=== PATIENT | female | born 1995 | race Two or more races ===

== ENCOUNTER 2021-12-16 15:31 | Emergency (ER) | payer MEDICAID ==
[~2021-12-16] VITALS: Ht 175.3 cm; Wt 59.0 kg
[2021-12-16] MEDS ORDERED: CEPH500T PO (17:42)
--- NOTE | 2021-12-16 18:00 | NUR ---
Patient was seen by . Wound cleansed and I and D by Dr Hansen. Sterile dressing applied. DC, Rx and follow up instructionws given and explained to patient who states she understands all instrucitons including wound check in 2 days
== END 2021-12-16 18:23 | disposition home or self-care (01) ==
LOC: ER 15:31
DX: L02.412 Cutaneous abscess of left axilla (principal); F17.290 Nicotine dependence, other tobacco product, uncomplicated; Z88.5 Allergy status to narcotic agent; Z79.899 Other long term (current) drug therapy
CPT/HCPCS: A4217; A4663

== ENCOUNTER 2021-12-19 21:09 | Emergency (ER) | payer MEDICAID ==
[~2021-12-19 21:09] MED LIST: CEPH500T PO
--- NOTE | 2021-12-19 21:45 | NUR ---
Katelyn [email or web address] in [facility] - 12/19/21 at 2145 by [id number] AFTER BEING TRAIGED, PATIENT WAS PLACED IN HALLWAY DUE TO NO BEDS AVAILABLE IN THE ER.
--- NOTE | 2021-12-19 22:01 | NUR ---
PATIENT LEFT WITHOUT BEING TRIAGED OR SEEN BY ERMD.
== END 2021-12-19 22:02 | disposition left against medical advice (07) ==
LOC: ER 21:16
DX: Z53.21 Procedure and treatment not carried out due to patient leaving prior to being seen by health care provider (principal)

== ENCOUNTER 2021-12-21 22:10 | Emergency (ER) | payer SELFPAY ==
--- NOTE | 2021-12-21 22:35 | NUR ---
Patient was called to be triaged but was not present in the waiting room or outside of ER.
--- NOTE | 2021-12-21 22:45 | NUR ---
Patient was called to be triaged but was not present in the waiting room or outside of ER.
--- NOTE | 2021-12-21 23:00 | NUR ---
Patient was not triaged or seen by ERMD
== END 2021-12-22 00:12 | disposition left against medical advice (07) ==
LOC: ER 22:15
DX: Z53.21 Procedure and treatment not carried out due to patient leaving prior to being seen by health care provider (principal)

== ENCOUNTER 2022-02-25 19:52 | Emergency (ER) | payer MEDICAID ==
[~2022-02-25] VITALS: Ht 172.7 cm; Wt 63.5 kg
--- NOTE | 2022-02-25 20:06 | NUR ---
DREDILBERTO EXAMINED PATIENT AT B/S.
--- NOTE | 2022-02-25 20:14 | NUR ---
ASSISTED :DONOVAN WITH LEFT BIG TOE WOUND CULTURE.SPECIMEN SEND TO LAB .
[2022-02-25] MEDS ORDERED: CEFTRIAXONE 1 G in IV DEXTROSE 5% 50 ML IV ONE (20:15)
[2022-02-25] MEDS ORDERED: SULFAMETH/TRIMETH 800/160 MG TABLET PO ONE (20:15)
[2022-02-25] MEDS ORDERED: SULFAMETH/TRIMETH 800/160 MG TABLET ONE (20:23)
[2022-02-25] MEDS ORDERED: CEFTRIAXONE /D5W 50ML IVPB **ER PYXIS IV ONE (20:23)
[2022-02-25 20:32] LABS: HEMATOCRIT 32.2 % (31.2-41.9); MEAN CORPUSCULAR HEMOGLOBIN 28.3 uug (24.7-32.8); MEAN CORPUSCULAR VOLUME 82.6 fL (75.5-95.3); PLATELET COUNT (AUTO) 233 K/uL (179-408)
[2022-02-25 20:36] LABS: CREATININE 0.8 mg/dL (0.6-1.3); POTASSIUM 3.5 mmol/L (3.5-5.1)
[2022-02-25] MEDS ORDERED: BACITRACIN ZINC OINT 15 GM TUBE ONE (20:53)
--- NOTE | 2022-02-25 20:54 | NUR ---
ASSISTED JOVITA MAN WITH WOUND DEBRIDEMENT AT B/S .LEFT BIG TOE AND RIGHT LOWER LEG .
[2022-02-25] MEDS ORDERED: SULF1TAB48 PO (20:56)
[2022-02-25] MEDS ORDERED: BACITRACIN ZINC OINT 15 GM TUBE TOP ONE (21:00)
--- NOTE | 2022-02-25 21:52 | NUR ---
Patient discharged to home in stable condition. Written and verbal after care instructions given. Patient verbalizes understanding of instructions. Stressed follow up or return to ER for worsening s/s. 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 AMBULATORY WITH [facility] .
[2022-02-25 21:54] VITALS: BP 115/80
== END 2022-02-25 21:55 | disposition home or self-care (01) ==
LOC: ER 20:04
DX: L03.119 Cellulitis of unspecified part of limb (principal); L97.811 Non-pressure chronic ulcer of other part of right lower leg limited to breakdown of skin; S90.422A Blister (nonthermal), left great toe, initial encounter; X58.XXXA Exposure to other specified factors, initial encounter; Y92.89 Other specified places as the place of occurrence of the external cause
CPT/HCPCS: 36415; 80048; 85025; 87070; 87077; 96365; 99284; J0696; A4663